=== PATIENT | male | born 1990 | race Caucasian/White ===

== ENCOUNTER 2018-05-22 16:17 | Day surgery (SDC) | payer BC, MEDICAID ==
[~2018-05-22] VITALS: Ht 188 cm; Wt 102.4 kg
[2018-05-22] MEDS ORDERED: LIDOCAINE 2%, 20ML SQ ONE (17:00)
[2018-05-22] MEDS ORDERED: HYDROcodone/APAP 5/325 TABLET PO ONE (17:00)
--- NOTE | 2018-05-22 17:26 | NUR ---
IV PLACED FOR CT.
[2018-05-22] MEDS ORDERED: CLINDAMYCIN PMX 600MG/50ML 50 ML IV ONE (17:30)
[2018-05-22] MEDS ORDERED: HYDROcodone/APAP 5/325 TABLET ONE (17:39)
[2018-05-22] MEDS ORDERED: CLINDAMYCIN PMX 600MG/50ML 50 ML ONE (17:39)
--- NOTE | 2018-05-22 17:55 | NUR ---
PT BACK FROM CT. MEDICATED PER MAR FOR PAIN, ABX STARTED. FRIEND AT BEDSIDE. CALL LIGHT WITHIN REACH. AWAITING CT RESULTS AT THIS TIME
[2018-05-22] MEDS ORDERED: OMNIPAQUE 350 MG/ML, 100ML BOTTLE ONE (17:58)
[2018-05-22] MEDS ORDERED: LIDOCAINE-MPF 1%, 5ML ONE (18:15)
--- NOTE | 2018-05-22 19:15 | NUR ---
PT RESTING IN BED, VSS. FRIEND AT BEDSIDE. CALL LIGHT WITHIN REACH. AWAITING CALL BACK FROM [facility]
--- NOTE | 2018-05-22 19:47 | NUR ---
REPORT GIVEN TO OR, PT UNDRESSED COMPLETELY UNDRESSED, ALL BELONGINGS INTO BAG. PT READY FOR TRANSPORT
[2018-05-22] MEDS ORDERED: LIDOCAINE 1%-EPI 1:100K, 20ML ONE (19:50)
[2018-05-22] MEDS ORDERED: MIDAZOLAM 1 MG/ML, 2ML ONE (20:00)
[2018-05-22] MEDS ORDERED: FENTANYL PF 250 MCG/5ML ONE (20:00)
[2018-05-22] MEDS ORDERED: LIDOCAINE 1%-EPI 1:100K, 20ML INFIL ONE (20:00)
[2018-05-22] MEDS ORDERED: ACETAMINOPHEN 650 MG/20.3 ML UDC ONE (21:28)
[2018-05-22] MEDS ORDERED: PROMETHAZINE 25 MG/ML, 1ML ONE (21:28)
[2018-05-22] MEDS ORDERED: OXYcodone 5 MG/5 ML ORAL.SOL UDC ONE (21:29)
[2018-05-22] MEDS ORDERED: ONDANSETRON ODT 8 MG PO PRN (21:30)
[2018-05-22] MEDS ORDERED: MEPERIDINE/PF 25MG/0.5ML IVPush PRN (21:30)
[2018-05-22] MEDS ORDERED: DIAZEPAM 5 MG/ML, 2ML IVPush PRN (21:30)
[2018-05-22] MEDS ORDERED: PROMETHAZINE 25 MG/ML, 1ML IV PRN ×2 (21:30→22:00)
[2018-05-22] MEDS ORDERED: EPHEDRINE 50 MG/ML, 1ML IM PRN (21:30)
[2018-05-22] MEDS ORDERED: FENTANYL PF 100 MCG/2ML IV PRN (21:30)
[2018-05-22] MEDS ORDERED: PROMETHAZINE 25 MG SUPP PR PRN (21:30)
[2018-05-22] MEDS ORDERED: PROMETHAZINE 12.5 MG SUPP PR PRN (21:30)
[2018-05-22] MEDS ORDERED: ONDANSETRON 2MG/ML, 2ML IV PRN (21:30)
[2018-05-22] MEDS ORDERED: OXYcodone 5 MG/5 ML ORAL.SOL UDC PO PRN (21:30)
[2018-05-22] MEDS ORDERED: ACETAMINOPHEN 325 MG TABLET PO PRN (21:30)
[2018-05-22] MEDS ORDERED: MORPHINE SULFATE 4 MG/ML, 1ML IVPush PRN ×2 (21:30→23:45)
[2018-05-22] MEDS ORDERED: DIPHENHYDRAMINE 50 MG/ML, 1ML IVPush PRN (21:30)
[2018-05-22] MEDS ORDERED: MIDAZOLAM 1 MG/ML, 2ML IV PRN (21:30)
[2018-05-22 22:00] VITALS: BP 142/90
[2018-05-22] MEDS ORDERED: AMOX1TAB64 PO (22:25)
[2018-05-22] MEDS ORDERED: CHLO15MO PO (22:38)
[2018-05-22] MEDS ORDERED: HYDR-3240 PO (22:40)
[2018-05-22] MEDS ORDERED: LACTATED RINGERS 1,000 ML IV SCH (23:45)
[2018-05-22] MEDS ORDERED: HYDROcodone/APAP 5/325 TABLET PO PRN (23:45)
== END 2018-05-22 23:55 | disposition home or self-care (01) ==
LOC: ED 19:39 → EDIP 19:45 → UNDOADMIN 19:45 → OR 20:25 → EDIP 22:10 → 4NOR 22:10 → UNDODISIN 23:55 → OR 23:55
PROVIDERS: ATTEND Emergency Medicine
DX: M27.2 Inflammatory conditions of jaws (principal); K02.9 Dental caries, unspecified; B37.0 Candidal stomatitis
CPT/HCPCS: 41008; 41899; 70491; J2250; J2550; J3010; J3490; Q9967; G0378